=== PATIENT | female | born 1955 | race Two or more races ===

== ENCOUNTER 2023-05-18 12:53 | Outpatient (REF) | payer OTHER, SELFPAY | END 2023-05-18 12:54 | disposition home or self-care (01) | LOC: HO.US 12:53 | PROVIDERS: PCP Internal Medicine Nephrology; Visit Provider Psychiatry & Neurology Neurology | DX: Z86.73 Personal history of transient ischemic attack (TIA), and cerebral infarction without residual deficits (principal) | CPT/HCPCS: 93880 ==